=== PATIENT | male | born 1970 | race Asian ===

== ENCOUNTER 2023-11-08 03:11 | Emergency (ER) | payer SELFPAY ==
[~2023-11-08] VITALS: Ht 172.7 cm; Wt 75.0 kg
[2023-11-08 03:18] VITALS: O2SAT 96
[2023-11-08 04:16] LABS: BASOPHILS % 1.2 % (0.0-2.0); EOSINOPHILS % 2.4 % (0.0-5.0); HEMATOCRIT. 38.8 % (42.0-52.0); HEMOGLOBIN. 13.6 g/dL (14.0-18.0); LYMPHOCYTES % 31.4 % (20.0-50.0); MEAN CORPUSCULAR HEMOGLOBIN 33.7 pg (28.0-32.0); MEAN CORPUSCULAR HGB CONC 35.1 g/dL (31.0-37.0); MEAN CORPUSCULAR VOLUME 95.9 fL (80.0-94.0); MEAN PLATELET VOLUME 7.1 fl (7.4-10.4); MONOCYTES % 10.1 % (2.0-8.0); NEUTROPHILS % 54.9 % (40.0-76.0); PLATELET 330 x1000/uL (130-400); RED BLOOD CELL COUNT 4.05 mill/uL (4.7-6.1); RED CELL DISTRIBUTION WIDTH 15.1 % (11.6-14.6); WHITE BLOOD COUNT 5.3 x1000/uL (4.5-11.0)
[2023-11-08 04:26] LABS: CHLORIDE 108 mEq/L (98-107); POTASSIUM 3.5 mEq/L (3.5-5.1); SODIUM 138 mEq/L (136-145)
[2023-11-08 04:27] LABS: CARBON DIOXIDE 27 mEq/L (21-32)
[2023-11-08 04:28] LABS: CALCIUM 8.5 mg/dL (8.7-10.4)
[2023-11-08 04:32] LABS: CREATININE 0.8 mg/dL (0.6-1.3); GLUCOSE 141 mg/dL (70-105); INR 0.9; PARTIAL THROMBOPLASTIN TIME 26.8 sec (23.4-31.0); PROTHROMBIN TIME 10.3 sec (9.6-11.0); UREA NITROGEN BLOOD 11 mg/dL (9-23)
[2023-11-08 04:33] LABS: ETHANOL BLOOD < 10 mg/dL (<10); TROPONIN I HIGH SENSITIVITY < 4 ng/L (3.0-53)
[2023-11-08 04:37] LABS: FOLIC ACID (FOLATE) SERUM > 20.00 ng/mL (>5.38)
[2023-11-08 04:38] LABS: VITAMIN B12 SERUM 520 pg/mL (211-911)
[2023-11-08] MEDS: SODIUM CHLORIDE 0.9% 1,000 ML IV ONE (04:45)
[2023-11-08] MEDS ORDERED: ACETAMINOPHEN 1000MG/100ML 100 ML IV ONE (04:45)
[2023-11-08] MEDS ORDERED: MECL-299 MT (05:16)
[2023-11-08 05:20] VITALS: BP 154/99; PULSE 89; RESP 20; TEMP 36.66960; O2SAT 99
[2023-11-08] MEDS ORDERED: IOHEXOL-350 100 ML BOTTLE ONE (05:51)
== END 2023-11-08 05:30 | disposition home or self-care (01) ==
LOC: ER 03:29
DX: R26.89 Other abnormalities of gait and mobility (principal); R42 Dizziness and giddiness; I10 Essential (primary) hypertension; F17.210 Nicotine dependence, cigarettes, uncomplicated
CPT/HCPCS: 80048; 80320; 82607; 82746; 83880; 83690; 85025; 85610; 85730; 84484; 36415; 71045; 70496; 70498; 70450; 93005; 96360; 99285; 84425; Q9967; J7030; G0480; J0131